=== PATIENT | female | born 1990 | race Caucasian/White ===

== ENCOUNTER → 2016-06-10 | Outpatient (CLI) | payer BC, MEDICAID ==
[2016-06-10 18:24] LABS: ALBUMIN 3.7 GM/DL (3.2-5.2); ANION GAP 11 MEQ/L (8-16); BLOOD UREA NITROGEN 53 MG/DL (7-18); CALCIUM LEVEL 8.4 MG/DL (8.5-10.1); CARBON DIOXIDE LEVEL 20 MEQ/L (21-32); CHLORIDE LEVEL 110 MEQ/L (98-107); CREATININE FOR GFR 3.07 MG/DL (0.55-1.02); GLOMERULAR FILTRATION RATE 19.9 (>60); GLUCOSE, FASTING 98 MG/DL (70-105); PHOSPHORUS LEVEL 4.5 MG/DL (2.5-4.9); SODIUM LEVEL 141 MEQ/L (136-145)
[2016-06-10 18:30] LABS: BASO % 0.4 % (0.0-1.0); EOS # 0.2 K/mm3 (0.0-0.50); EOS % 3.8 % (0.0-3.0); LYMPH % 14.4 % (24.0-44.0); MEAN CORPUSCULAR HEMOGLOBIN 30.6 pg (27.0-33.0); MEAN CORPUSCULAR HGB CONC 32.8 g/dl (32.0-36.5); MEAN CORPUSCULAR VOLUME 93.4 fl (80.0-96.0); MONO # 0.4 K/mm3 (0.0-0.8); NEUTROPHILS # 4.1 K/mm3 (1.8-7.7); NEUTROPHILS % 71.6 % (36.0-66.0); POTASSIUM SERUM 5.3 MEQ/L (3.5-5.1); RED CELL DISTRIBUTION WIDTH 13.5 % (11.5-14.5); WHITE BLOOD COUNT 5.7 K/mm3 (4.0-10.0)
[2016-06-10 18:54] LABS: FOLATE > 24.0 NG/ML; VITAMIN B12 LEVEL 1906 PG/ML
== END ==
LOC: M SMT 14:26
PROVIDERS: ATTEND Emergency Medicine
DX: Q61.2 Polycystic kidney, adult type (principal); Q93.88 Other microdeletions

== ENCOUNTER → 2016-06-24 | Outpatient (CLI) | payer BC, MEDICAID ==
--- NOTE | 2016-06-24 14:43 | REP ---
ULTRASOUND OF THE ABDOMEN: Real-time sonographic of the abdomen performed. Study is limited as the patient could lie in the decubitus position for the exam. Gallbladder demonstrates no evidence of intraluminal sludge or calculi, wall thickening, or pericholecystic fluid. There is no intrahepatic or extrahepatic biliary dilatation, common bile duct measuring 2 mm in diameter. Liver and pancreas demonstrate homogenous echotexture with no gross mass, pancreas not optimally seen due to overlying bowel gas. Spleen is 7.5 cm in length. There is a splenic cyst with linear calcifications along the wall of the cyst measuring 4.3 x 4.4 x 4.8 cm. Right kidney measures 9.6 x 4.0 x 4.5 cm and left kidney 9.1 x 4.7 x 4.3 cm. There are multiple bilateral renal cysts again noted compatible with polycystic kidney disease. Abdominal aorta is not dilated with a maximum diameter of 1 cm. No ascites is seen. IMPRESSION: Somewhat limited exam due to limited decubitus positioning due to severe scoliosis, and bowel gas. Once again there is a cyst in the spleen and multiple cysts are seen in both kidneys. The ultrasound of the abdomen is otherwise grossly unremarkable. Signed by Hong Amado MD 06/25/2016 01:18 P
== END ==
LOC: M RAD 13:11
PROVIDERS: ATTEND Emergency Medicine
DX: Q61.3 Polycystic kidney, unspecified (principal); Q93.88 Other microdeletions

== ENCOUNTER → 2017-01-07 | Outpatient (REF) | payer BC, MEDICAID ==
[2017-01-07 14:02] LABS: FREE T4 1.22 NG/DL (0.76-1.46)
== END ==
LOC: M LAB REF 12:47
PROVIDERS: ATTEND Internal Medicine Nephrology
DX: E87.1 Hypo-osmolality and hyponatremia (principal)